=== PATIENT | female | born 1995 | race Caucasian/White ===

== ENCOUNTER 2017-08-25 07:37 | Day surgery (SDC) | payer OTHER ==
[~2017-08-25 07:37] MED LIST: LACTATED RINGERS 1,000 ML IV SCH
[2017-08-25 08:06] VITALS: RESP 16; TEMP 98.1
[2017-08-25] MEDS ORDERED: LIDOCAINE 1% INJ 10MG/ML (20 ML MDV) ONE (08:33)
[2017-08-25] MEDS ORDERED: PROPOFOL 10 MG/ML 20 ML VIAL IV ONE (08:33)
--- NOTE | 2017-08-25 08:54 | P.PCN ---
Date of Procedure: 08/25/17 Preoperative Diagnosis: Abdominal pain, family history dad with colon cancer 36 Postoperative Diagnosis: Normal mucosa to cecum, internal hemorrhoids Procedure(s) Performed: Colonoscopy Anesthesia: MAC Surgeon: Myrtle Suarez Estimated Blood Loss (ml): 0 IV fluids (ml): 400 Pathology: none sent Condition: stable Disposition: PACU Indications for Procedure: Abdominal pain, family history of dAD of colon cancer at approximately 35 Operative Findings: Normal mucosa, internal hemorrhoids small Description of Procedure: Patient was taken to the endoscopy suite and following sedation rectal exam was performed. Patient was noted to have good sphincter tone no masses. Colonoscope was passed through the anus into the rectum. Was passed through the sigmoid colon up to splenic flexure transverse colon hepatic flexure right colon down to the area of the cecum. Circumferential observation of the mucosa did not reveal any lesions of concern in the cecum or right colon. No lesions of concern in the transverse colon. No lesions of concern in the left colon or sigmoid colon. Scope was brought down to the rectum where it was retroflexed. Internal hemorrhoids very small were identified. Proximally 6 minutes were taken to withdraw the scope from the cecum to the rectum. Impression/plan: 1. Normal mucosa rectum to the cecum 2. Small internal hemorrhoids Plan: 1. Conservative management of internal hemorrhoids 2. If abdominal pain persist follow-up with GI 3. Await results of the EGD
--- NOTE | 2017-08-25 08:56 | P.DS ---
Providers Attending physician: Myrtle Suarez Primary care physician: Elliott Chinchilla Plan - Discharge Summary Discharge Rx Participant: No New Discharge Prescriptions: No Action Omeprazole 20 mg PO QAM Cholecalciferol (Vitamin D3) [Vitamin D3] 2,000 unit PO DAILY Discharge Medication List Cholecalciferol (Vitamin D3) [Vitamin D3] 2,000 unit PO DAILY 08/21/17 [History] Omeprazole 20 mg PO QAM 08/21/17 [History] Follow up Appointment(s)/Referral(s): Jack Jordan MD [STAFF PHYSICIAN] - 1 Week Activity/Diet/Wound Care/Special Instructions: Do not drive today Discharge Disposition: HOME SELF-CARE
[2017-08-25 09:39] VITALS: BP 114/74; PULSE 83
--- NOTE | 2017-08-25 11:08 | P.PCN ---
Date of Procedure: 08/25/17 Procedure(s) Performed: Procedure: Esophagogastroduodenoscopy and biopsy. Preoperative diagnosis: Abdominal pain. Postoperative diagnosis: 1. Small sliding hiatal hernia with no obvious esophagitis or complicated reflux disease. 2. Mild antral gastritis. 3. Multiple biopsies obtained from the duodenum, antrum and esophagus. Preparation and sedation: Was provided by anesthesia. Brief clinical history: The patient is a 22-year-old female who is scheduled for this evaluation because of abdominal pain. This was conurrently scheduled to follow her colonoscopy which was performed by Dr. Suarez because of family history of colon cancer.. Procedure: With the patient on her left lateral decubitus position and after informed consent and adequate sedation, I passed the Olympus-GIF 160 video upper endoscope through the cricopharyngeus down the esophagus. GE junction was around 40 cm from the incisors and there was a small sliding hiatal hernia but no obvious esophagitis or complicated reflux disease. The endoscope was then passed into the stomach which was insufflated with air and inspected in detail including the retroflex view in the cardia. There was minimal mottling and erythema in the antrum but no ulcers or erosions. Pyloric channel, duodenal bulb, post bulbar area and descending duodenum appeared within normal limits. Because of her symptoms, I obtained biopsies from the duodenum, antrum and esophagus then the endoscope was withdrawn. The patient tolerated the procedure well. Plan: The patient was reassured and I discussed with her family. She will follow-up with you as planned and further plans can be made based on her course and biopsy results. I will be happy to see in the future in the office if needed.
== END 2017-08-25 10:37 | disposition home or self-care (01) ==
LOC: ORWHC2ENDO 07:37
PROVIDERS: ATTEND Surgery
DX: K29.50 Unspecified chronic gastritis without bleeding (principal); K44.9 Diaphragmatic hernia without obstruction or gangrene; K64.8 Other hemorrhoids; K20.9 Esophagitis, unspecified; Z80.0 Family history of malignant neoplasm of digestive organs
CPT/HCPCS: 88305; 45378; 43239; J2001; J2704